=== PATIENT | male | born 1945 | race Caucasian/White ===

== ENCOUNTER 2018-04-21 10:33 | Emergency (ER) | payer OTHER ==
--- NOTE | 2018-04-21 10:58 | EDM.PDOC ---
ED HPI GENERAL MEDICAL PROBLEM - General Stated Complaint: NEEDLE STICK FOLLOW UP Time Seen by Provider: 04/21/18 10:33 Source of Information: Reports: Patient History Limitations: Reports: No Limitations - History of Present Illness Onset Date: 04/15/18 Onset Time: 22:00 Duration: Day(s): Location: Reports: Upper Extremity, Left Quality: Reports: Dull Severity: Mild Improves with: Reports: Rest Worsens with: Reports: Movement Context: Reports: Trauma (needle stick exposture) - Related Data Allergies Allergy/AdvReac Type Severity Reaction Status Date / Time No Known Allergies Allergy Verified 04/21/18 10:44 Home Meds: Home Meds . [Unable to Verify Home Med List] 04/21/18 [History] ED ROS GENERAL - Review of Systems Review Of Systems: See Below Constitutional: Reports: No Symptoms HEENT: Reports: No Symptoms Respiratory: Reports: No Symptoms Cardiovascular: Reports: No Symptoms Endocrine: Reports: No Symptoms GI/Abdominal: Reports: No Symptoms : Reports: No Symptoms Musculoskeletal: Reports: No Symptoms Skin: Reports: Other (needle stick left hand) Neurological: Reports: No Symptoms Psychiatric: Reports: No Symptoms Hematologic/Lymphatic: Reports: No Symptoms Immunologic: Reports: No Symptoms ED EXAM, GENERAL - Physical Exam Exam: See Below Exam Limited By: No Limitations General Appearance: Alert, WD/WN, No Apparent Distress Eye Exam: Bilateral Eye: Normal Inspection Ears: Normal External Exam Ear Exam: Bilateral Ear: Auricle Normal Nose: Normal Inspection, Normal Mucosa Throat/Mouth: Normal Inspection, Normal Lips Head: Atraumatic, Normocephalic Neck: Normal Inspection, Supple, Non-Tender Respiratory/Chest: No Respiratory Distress Cardiovascular: Normal Peripheral Pulses Peripheral Pulses: 1+: Brachial (R) GI/Abdominal: Normal Bowel Sounds (Male) Exam: Deferred Rectal (Males) Exam: Deferred Back Exam: Normal Inspection, Full Range of Motion Extremities: Normal Inspection Neurological: Alert, Oriented, CN II-XII Intact, Normal Cognition, Normal Gait Psychiatric: Normal Affect, Normal Mood Skin Exam: Warm, Dry, Intact, Normal Color, No Rash Lymphatic: No Adenopathy Course - Vital Signs Text/Narrative:: 10.56 am Consultation: Dr. Hamilton, Inf Disease [place]: Hepatitis AB was pos from the patient [place]. Dr. Hamilton recommended to test for HCV Nucleic Acid Amplification test on PT [place]. If neg. Pt is doing fine if pos, Mannie Guallpa must f/u with [facility] infection disease at [place]. [facility] will ask the pt [place] to come back for lab tests. Last Recorded V/S: Last Vital Signs Temp 36.8 C 04/21/18 10:35 Pulse 58 L 04/21/18 10:35 Resp 16 04/21/18 10:35 BP 146/100 H 04/21/18 10:35 Pulse Ox 100 04/21/18 10:35 Departure - Departure Time of Disposition: 11:11 Disposition: Home, Self-Care 01 Condition: Good Clinical Impression: Needle stick injury - Discharge Information Referrals: PCP,None [Primary Care Provider] - Additional Instructions: Hepatitis AB was pos from the patient [place]. Infection disease Specialist Dr. Hamilton, was consulted at 11 am. He commended to draw the HCV Nucleic Acid Amplification test to be done. If neg. Pt is doing fine if pos, Mannie Guallpa must f/u with [facility] infection [facility] at [place].
== END 2018-04-21 11:00 | disposition home or self-care (01) ==
LOC: FB.ED 10:33
DX: S69.92XA Unspecified injury of left wrist, hand and finger(s), initial encounter (principal); K75.9 Inflammatory liver disease, unspecified; W27.3XXA Contact with needle (sewing), initial encounter
CPT/HCPCS: 99282

== ENCOUNTER 2018-11-20 10:39 | Emergency (ER) | payer OTHER ==
--- NOTE | 2018-11-20 11:02 | EDM.PDOC ---
ED HPI GENERAL MEDICAL PROBLEM - General Chief Complaint: Back Pain or Injury Stated Complaint: BACK INJURY Time Seen by Provider: 11/20/18 10:39 Source of Information: Reports: Patient History Limitations: Reports: No Limitations - History of Present Illness INITIAL COMMENTS - FREE TEXT/NARRATIVE: 73 y.o.w.m came to the ed because he felt some discomfort at his mid lower back after lifting -here [facility] [employer]a patient. He noticed a minor tenderness at his low back and thought he lefts check it out. He is otherwise in his usual state of health. BP 123/83 RR 16 Pulse ox 99% on RA Pulse 60 temp 36.8 Onset Date: 11/21/18 Onset Time: 10:00 Duration: Minutes:, Intermittent, Improving Location: Reports: Back Quality: Reports: Ache, Dull Severity: Mild Improves with: Reports: Rest Worsens with: Reports: None Context: Reports: Lifting (a patient) Associated Symptoms: Reports: No Other Symptoms - Related Data Allergies Allergy/AdvReac Type Severity Reaction Status Date / Time No Known Allergies Allergy Verified 11/20/18 10:55 Home Meds: Home Meds .Calcium 500/Vitamin D 500 1 tab PO BID 11/21/18 [History] Aspirin [Ecotrin] 162 mg PO DAILY 11/21/18 [History] Escitalopram [Lexapro] 20 mg PO DAILY 11/21/18 [History] Finasteride 5 mg PO DAILY 11/21/18 [History] LORazepam 1 mg PO DAILY 11/21/18 [History] Metoprolol Succinate 50 mg PO DAILY 11/21/18 [History] Omeprazole 1 cap PO DAILY 11/21/18 [History] Potassium Citrate 20 meq PO TID 11/21/18 [History] Ramipril [Altace] 5 mg PO DAILY 11/21/18 [History] atorvaSTATin [Lipitor] 10 mg PO DAILY 11/21/18 [History] Past Medical History - Past Health History Medical/Surgical History: Denies Medical/Surgical History Social & Family History - Family History Family Medical History: Noncontributory - Caffeine Use Caffeine Use: Reports: Coffee, Soda, Tea ED ROS GENERAL - Review of Systems Review Of Systems: See Below Constitutional: Reports: No Symptoms HEENT: Reports: No Symptoms Respiratory: Reports: No Symptoms Cardiovascular: Reports: No Symptoms Endocrine: Reports: No Symptoms GI/Abdominal: Reports: No Symptoms : Reports: No Symptoms Musculoskeletal: Reports: Back Pain (minimal discomfort) Skin: Reports: No Symptoms Neurological: Reports: No Symptoms Psychiatric: Reports: No Symptoms Hematologic/Lymphatic: Reports: No Symptoms Immunologic: Reports: No Symptoms ED EXAM,LOWER BACK PAIN/INJURY - Physical Exam Exam: See Below Exam Limited By: No Limitations General Appearance: Alert, WD/WN, No Apparent Distress Eye Exam: Bilateral Eye: Normal Inspection Ears: Normal External Exam Nose: Normal Inspection Throat/Mouth: Normal Lips, Normal Voice, No Airway Compromise Head: Atraumatic, Normocephalic Neck: Normal Inspection, Supple, Non-Tender, Full Range of Motion Respiratory/Chest: No Respiratory Distress, Lungs Clear Cardiovascular: Normal Peripheral Pulses, Regular Rate, Rhythm, No Edema GI/Abdominal: Normal Bowel Sounds, Soft, Non-Tender, No Organomegaly, No Distention, No Abnormal Bruit, No Mass, Pelvis Stable (Male) Exam: Deferred Rectal (Males) Exam: Deferred Back Exam: Normal Inspection, Full Range of Motion, Vertebral Tenderness ( minimal at L4/L5 and sacral area) Extremities: Normal Inspection, Normal Range of Motion, Non-Tender, No Pedal Edema Neurological: Alert, Normal Mood/Affect, Normal Dorsiflexion, CN II-XII Intact Psychiatric: Normal Affect, Normal Mood Skin Exam: Warm, Dry, Intact, Normal Color, No Rash Lymphatic: No Adenopathy Course - Vital Signs Text/Narrative:: 73 y.o.w.m came to the ed because he felt some discomfort at his mid lower back after lifting -at work here at [employer]-a patient. He noticed a minor tenderness at his low back and thought he lefts check it out. He is otherwise in his usual state of health. BP 123/83 RR 16 Pulse ox 99% on RA Pulse 60 temp 36.8 PE: WNWD W M with minimal tenderness mid lower back Imaging/labs not indicated Impression: back pain after lifting a pt Tx: none Plan: D/C with instructions Last Recorded V/S: Last Vital Signs Temp 36.3 C 11/20/18 10:50 Pulse 60 11/20/18 10:50 Resp 16 11/20/18 10:50 BP 127/83 11/20/18 10:50 Pulse Ox 99 11/20/18 10:50 Departure - Departure Time of Disposition: 11:00 Disposition: Home, Self-Care 01 Condition: Good Clinical Impression: Low back pain Qualifiers: Chronicity: acute Back pain laterality: bilateral Sciatica presence: without sciatica Qualified Code(s): M54.5 - Low back pain - Discharge Information Referrals: PCP,None [Primary Care Provider] - Forms: ED Department Discharge Additional Instructions: Rest, ice, motrin, please f/u, come back if your symptoms get worse acutely
== END 2018-11-20 11:20 | disposition home or self-care (01) ==
LOC: FB.ED 10:39
DX: M54.5 Low back pain (principal); Z79.899 Other long term (current) drug therapy; Z79.82 Long term (current) use of aspirin; X50.0XXA Overexertion from strenuous movement or load, initial encounter
CPT/HCPCS: 99282